=== PATIENT | female | born 1960 | race American Indian/Alaskan Native ===

== ENCOUNTER 2016-11-18 11:01 | Outpatient (CLI) | payer MEDICARE ==
[2016-11-18 11:41] LABS: Blood Urea Nitrogen 15 mg/dL (7-17)
--- NOTE | 2016-11-19 11:49 | Magnetic Resonance Report ---
MRI PELVIS WITHOUTAND WITH CONTRAST: 11/18/16 11:01:00 CLINICAL: Bilateral ovarian dermoids. No comparison imaging. TECHNIQUE: Sagittal, coronal and axial T1 and T2 fat sat sequences plus sagittal, coronal and axial postcontrast T1 fat sequences on a 1.5 Natty magnet. 15 cc of Multihance was injected intravenously for the contrast portion of the exam and consent was obtained prior to the administration of contrast. FINDINGS: A small fibroid uterus measures 6.8 x 4.1 x 4.8 cm. A single posterior left submucosal fibroid measures 2.9 cm. No other measurable fibroids. The endometrium is normal and measures 5.0 mm in AP thickness. The right ovary measures 6.5 x 3.8 x 4.3 cm and contains an oval relatively smooth oval mass with heterogeneous fat signal, hyperintense on T1 and hypointense on T2 fat-sat. The mass measures 4.3 x 4.2 x 4.2 cm. Some layering of material within the mass. The left ovary measures 3.2 x 2.6 x 2.3 cm and contains an oval mass or cyst measuring 2.5 x 2.3 cm. It is predominantly hyperintense on T2 with a central less intense nodule. No signal dropout is identified on the fat-sat sequence. Mild free pelvic fluid. Normal urinary bladder and rectum. L4-5 degenerative disc disease with narrowing of the disc space and discogenic signal change at the endplates of L4 and L5. IMPRESSION: 1. A small fibroid uterus with a dominant 2.9 cm left posterior; subtle fibroid. 2. Normal endometrium. 3. A 4.3 cm right ovarian mass with signal characteristics typical of a fat containing dermoid cyst. 2. A 2.5 cm left ovarian cyst or mass with nonspecific signal characteristics. Although dermoid cyst is a possibility, the signal characteristics are not pathognomonic and other possibilities such as hemorrhagic cyst or endometrioma are considerations. A CT of the pelvis would be more definitive if it shows fat density in the left ovary.
== END 2016-11-18 11:02 | disposition home or self-care (01) ==
LOC: MRI 11:01
PROVIDERS: ATTEND Obstetrics & Gynecology
DX: D25.0 Submucous leiomyoma of uterus (principal); M51.36 Other intervertebral disc degeneration, lumbar region; N83.9 Noninflammatory disorder of ovary, fallopian tube and broad ligament, unspecified
CPT/HCPCS: 36415; 72197; 82565; 84520; A9577